=== PATIENT | female | born 1955 | race Caucasian/White ===

== ENCOUNTER 2024-04-02 19:58 | Outpatient (CLI) | payer MEDICARE | END 2024-04-02 19:59 | disposition critical access hospital (66) | LOC: EMS 19:58 | DX: S01.111A Laceration without foreign body of right eyelid and periocular area, initial encounter (principal); S41.011A Laceration without foreign body of right shoulder, initial encounter; S51.811A Laceration without foreign body of right forearm, initial encounter; W05.0XXA Fall from non-moving wheelchair, initial encounter; Y92.480 Sidewalk as the place of occurrence of the external cause | CPT/HCPCS: A0425; A0429 ==

== ENCOUNTER 2024-04-02 20:25 | Emergency (ER) | payer MEDICARE ==
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
--- NOTE | 2024-04-02 21:48 | CT Report ---
PROCEDURE: Head WO INDICATIONS: fall, pain TECHNIQUE: Noncontrast 4.5 mm thick angled axial sections acquired from the foramen magnum to the vertex. For r adiation dose reduction, the following was used: automated exposure control, adjustment of mA and/or kV according to patient size. COMPARISON: None. FINDINGS: Image quality: Excellent. CSF spaces: Basal cisterns are patent. No extra-axial fluid collections. Ex vacuo dilatation of the right lateral ventricle. Brain: Encephalomalacia and gliosis within the right MCA territory from prior infarct. Age-related g lobal volume loss and chronic microvascular ischemic changes. Intracranial atherosclerotic vascular c alcifications. No midline shift. No intracranial masses or hemorrhage. Burroughs-white matter interface is normal. Skull and face: Prior right frontal craniotomy. Calvarium and visualized facial bones are intact, wi thout suspicious lesions. Sinuses: Visualized sinuses and mastoids are clear. IMPRESSION: 1.No acute intracranial pathology. 2.Sequela of prior right MCA territory infarct. Reviewed by: Mal Young MD on 04/02/2024 9:47 PM PDT Approved by: Mal Young MD on 04/02/2024 9:47 PM PDT Station ID: [id number]
--- NOTE | 2024-04-02 21:50 | CT Report ---
PROCEDURE: Maxillofacial WO INDICATIONS: fall, pain TECHNIQUE: Noncontrast 1.5 mm thick axial images acquired from the mandible through the frontal sinuses, with co kiana and sagittal reformatting. For radiation dose reduction, the following was used: automated ex posure control, adjustment of mA and/or kV according to patient size. COMPARISON: None. FINDINGS: Image quality: Excellent. Bones and teeth: Orbital dunn are intact. Sinus dunn show no fracture or deformity. Nasal bones and septum are intact. Visualized portions of the mandible demonstrate no fractures or subluxation. Zygomatic arches are intact. Pterygoid plates are intact. Visualized portions of the skull base an d auditory canals are intact. Sinuses: Paranasal sinuses are aerated, without fluid levels, mucosal thickening, or mucoceles. Mas toid air cells are aerated. Soft tissues: Right cheek laceration. No enlarged lymph nodes. No soft tissue lacerations or debris . Vascular: Visualized vascular structures appear normal in the absence of contrast. Bony vascular fo ramina and canals are intact. IMPRESSION: No acute facial fractures. Right cheek laceration. Reviewed by: Mal Young MD on 04/02/2024 9:49 PM PDT Approved by: Mal Young MD on 04/02/2024 9:49 PM PDT Station ID: [id number]
--- NOTE | 2024-04-02 21:52 | CT Report ---
PROCEDURE: Cervical Spine WO INDICATIONS: fall, pain TECHNIQUE: Noncontrast 3 mm thick sections acquired from the skull base to the T4 level. Sagittal and coronal r eformats were then constructed. For radiation dose reduction, the following was used: automated exp osure control, adjustment of mA and/or kV according to patient size. COMPARISON: None. FINDINGS: Image quality: Excellent. Bones: No fractures or dislocations. Multilevel degenerative changes of the cervical spine. Straight ening of the normal cervical lordosis. Visualized superior ribs are intact. Soft tissues: Prevertebral soft tissues are normal in thickness. No paravertebral hematomas. No ap ical pneumothoraces. IMPRESSION: No acute, displaced fracture or traumatic subluxation. Reviewed by: Mal Young MD on 04/02/2024 9:51 PM PDT Approved by: Mal Young MD on 04/02/2024 9:51 PM PDT Station ID: [id number]
[2024-04-02 22:14] VITALS: BP 130/72; O2SAT 96
== END 2024-04-02 22:23 | disposition home or self-care (01) ==
LOC: ED 20:25
DX: S09.90XA Unspecified injury of head, initial encounter (principal); S51.811A Laceration without foreign body of right forearm, initial encounter; W05.0XXA Fall from non-moving wheelchair, initial encounter; I10 Essential (primary) hypertension
CPT/HCPCS: 99283; 99284